=== PATIENT | male | born 1955 | race Caucasian/White ===

== ENCOUNTER → 2024-01-13 07:00 | Outpatient (REF) | payer OTHER, SELFPAY | LOC: RAD 07:00 | PROVIDERS: ATTENDING PHYSICIAN Family Medicine | DX: Z87.891 Personal history of nicotine dependence (principal) | CPT/HCPCS: 71271 ==

== ENCOUNTER 2024-03-21 20:18 | Inpatient (IN) | payer OTHER, SELFPAY ==
[2024-03-21] VITALS (10 sets, daily range): BP systolic 98–166; BP diastolic 58–114; BMI 30.2; BMI 29.8
--- NOTE | 2024-03-21 15:21 | ED.GENMED ---
History of Present Illness
General
Chief Complaint: Abdominal Pain
Time Seen by Provider: 03/21/24 15:07
History of Present Illness
History of Present Illness:
68-year-old male presents to the emergency department for evaluation of left lower quadrant abdominal pain radiating to the left flank that began at noon today. Feels comparable to a pain that he had 5 years ago that was diagnosed as a left renal
infarct. Denies any fevers or chills. No intra-abdominal surgeries in the past. No hematuria
Past History
Past History
ED Past Medical History: HTN, Hypercholesterolemia and Other (renal calc)
Social History
Tobacco: Former smoker
Alcohol: None
Drug: None
Personal:
Living: with family
Employment: Employed
Review of Systems
Review of Systems
Allergies reviewed?: Yes
All Other Systems: ROS reviewed and negative except as documented in HPI and ROS
Phy Exam
Physical Exam
Physical Exam:
GEN: Well appearing, NAD, WDWN
HEENT: Oral mucosa moist, no scleral icterus
Cardiac: Regular rate
Lung: No respiratory distress, no tachypnea
Abdomen: Soft, nontender, no CVA tenderness
MSK: No gross deformity or injuries
Skin: Good color, no pallor or jaundice, no rashes
Neuro: AO x3, moves all extremities freely
Psych: Calm, cooperative
Course
Orders/Labs/Results
Orders:
Orders
03/21/24 15:18
CT Abd/Pel (IV only)-DH only Urgent
Comment:
Reason For Exam: LLQ pain
03/21/24 15:50
ECG [Electrocardiogram (*1)] Urgent
Reason for Study: Chest Pain
EKG- Treatment ONCE
03/21/24 15:57
HYDROmorphone [Dilaudid] 0.5 mg .ROUTE .STK-MED ONE
03/21/24 15:58
HYDROmorphone [Dilaudid] 0.5 mg IV NOW STA
03/21/24 16:02
Complete Blood Count/With Diff Urgent
Comprehensive Metabolic Panel Urgent
Prothrombin Time Urgent
03/21/24 16:29
Ketorolac [Toradol] 15 mg IV NOW STA
03/21/24 16:54
HYDROmorphone [Dilaudid] 1 mg IV NOW STA
03/21/24 18:50
Urinalysis Reflex To Culture Urgent
Date Specimen was Collected: 03/21/24
Time Specimen was Collected: 18:34
Urine Microscopic Reflex Cult Urgent
03/21/24 19:05
HYDROmorphone [Dilaudid] 0.5 mg IV NOW STA
03/21/24 19:41
0.9% Sodium Chloride 1000 ml [Nss] 1,000 ml IV BOLUS
03/21/24 20:03
Tamsulosin [Flomax] 0.4 mg PO NOW STA
03/21/24 20:15
0.9% Sodium Chloride 1000 ml [Nss] 1,000 ml IV 150 mls/hr
03/22/24 08:00
Tamsulosin [Flomax] 0.4 mg PO DAILY
Abnormal Lab Results
03/21/24 03/21/24
16:02 18:50
Absolute Neuts (auto) 7.8 H 10^3/uL
(1.4-6.5)
Absolute Lymphs (auto) 1.1 L 10^3/uL
(1.2-3.4)
Neutrophils % 80.4 H %
(42.2-75.2)
Lymphocytes % 11.1 L %
(20.5-51.1)
BUN 23 H mg/dl
(9-20)
Glucose 111 H mg/dl
(70-99)
Ur Occult Blood Reflex 4+ A
(Negative)
Urine RBC 70-80 A /HPF
(0-2)
Urine Bacteria (Reflex) Few A
(Negative)
03/21/24 16:02
03/21/24 16:02
Vital Signs
Initial and Last Documented VS:
Initial Vital Signs
Temp Pulse Resp BP Pulse Ox
98.4 F 77 20 128/95 95
03/21/24 14:15 03/21/24 14:15 03/21/24 14:15 03/21/24 14:15 03/21/24 14:15
Last Documented Vital Signs
Temp Pulse Resp BP Pulse Ox
98.4 F 72 14 131/86 93
03/21/24 14:15 03/21/24 20:00 03/21/24 20:00 03/21/24 20:00 03/21/24 20:00
MDM/Problems Addressed
MDM/Problems Addressed:
Patient noted to have 3 mm proximal ureteral stone. He had multiple bouts of diaphoresis and severe pain requiring numerous doses of IV opioids and Toradol. Ultimately his pain was not well-controlled thus he is not suitable for discharge to home,
will admit to the hospital service for further pain control, urology made aware for consultation and potential intervention if warranted
*Critical Care Note
Total Time (30-74mins, 75-104mins- exclusive of procedures): Not Applicable
ED Attending Note
-
Portions of this chart may have been created with voice recognition software.� Occasional wrong word or��sound alike� substitutions may have occurred due to the inherent limitations of voice recognition software.
Discharge Plan
Departure
Patient Disposition: Admit
Date of Disposition: 03/21/24
Time of Disposition: 19:28
Admit to: Med/Surg
Presentation/result/management discussed w/ accepting MD/DO: Hospitalist
Patient with high blood pressure during this ER visit?: No
Discharge Problem:
Ureterolithiasis
Prescriptions:
No Action
meloxicam 15 MG tablet
15 mg PO DAILY
temazepam 15 MG capsule
15 mg PO HS
simvastatin 20 MG tablet
20 mg PO QPM
aspirin 81 MG tablet,chewable
162 mg PO DAILY
metoprolol succinate 50 mg tablet extended release 24 hr
50 mg PO QPM
Theragen Tablet
1 tab PO NOON
amlodipine 5 mg tablet
5 mg PO QPM
losartan 100 mg tablet
100 mg PO QPM
escitalopram oxalate 10 mg tablet
10 mg PO DAILY
Referrals:
Ronen York MD [Family Provider] -
Interventions
Interventions:
*Risk Screen - Suicide Last Done: 03/21/24 14:15
*General Assessment Last Done: 03/21/24 14:15
*Neglect/Abuse Screening Last Done: 03/21/24 14:15
ED- Fall Risk Assessment Last Done: 03/21/24 17:16
FL-Yximym-Noqgokmrac Assessment Last Done: 03/21/24 16:01
Discharge Date and Time
Print Language: SPANISH
[2024-03-21] MEDS: DILAUDID 0.5 MG IV (16:02)
[2024-03-21 16:11] LABS: % Basophils 0.5 % (0-2); % Eosinophils 1.2 % (0-6); % Immature Granulocytes 0.4 % (0-0.5); % Lymphocytes 11.1 % (20.5-51.1); % Monocytes 6.4 % (1.7-9.3); % Neutrophils 80.4 % (42.2-75.2); Absolute Basophils 0.1 10^3/uL (0-0.2); Absolute Eosinophils 0.1 10^3/uL (0-0.7); Absolute Lymphocytes 1.1 10^3/uL (1.2-3.4); Absolute Monocytes 0.6 10^3/uL (0.1-0.6); Absolute Neutrophils 7.8 10^3/uL (1.4-6.5); Hematocrit 43.2 % (39.0-52.0); Hemoglobin 15.1 g/dL (13.0-18.0); Mean Corpuscular Hgb 29.3 pg (27.0-31.0); Mean Corpuscular Volume 83.7 fL (80.0-94.0); Mean Platelet Volume 9.9 fL (7.4-10.4); Nucleated Red Blood Cells % 0 % (-); Platelet Count 289 10^3/uL (130-400); Red Blood Cell Count 5.16 10^6/uL (4.70-6.10); Red Cell Dist. Width 13.1 % (11.5-14.5); White Blood Cell Count 9.7 10^3/uL (4.8-10.8)
[2024-03-21 16:26] LABS: ALT (SGPT) 25 U/L (0-50); AST (SGOT) 29 U/L (17-59); Albumin 4.7 g/dl (3.5-5.0); Alkaline Phosphatase 106 U/L (38-126); Blood Urea Nitrogen 23 mg/dl (9-20); Calcium 9.9 mg/dl (8.4-10.2); Carbon Dioxide 24 mmol/L (22-30); Chloride 103 mmol/L (98-107); Estimated Creatinine Clearance 78 ml/min; Glucose 111 mg/dl (70-99); Potassium 4.6 mmol/L (3.5-5.1); Sodium 137 mmol/L (135-145); Total Bilirubin 0.4 mg/dl (0.2-1.3); Total Protein 7.1 g/dl (6.3-8.2); eGFR > 60.00
[2024-03-21 16:29] LABS: INR 0.99; PT 12.8 Sec (11.4-14.6)
[2024-03-21] MEDS: TORADOL 15 MG IV (16:35)
[2024-03-21] MEDS: DILAUDID 1 MG IV ×2 (16:58→21:32)
[2024-03-21 18:56] LABS: Urine Albumin Negative (Neg - Trace); Urine Bilirubin Negative (Negative); Urine Character Clear (Clear); Urine Color Yellow; Urine Glucose Negative (Negative); Urine Ketone Negative (Negative); Urine Leukocyte Negative (Negative); Urine Nitrite Negative (Negative); Urine Occult Blood 4+ (Negative); Urine Specific Gravity 1.015 (<1.030); Urine Urobilinogen Negative (Neg - 1+)
[2024-03-21 19:04] LABS: Urine Mucus Few
[2024-03-21 19:05] LABS: Urine Bacteria Few (Negative); Urine Red Blood Cell 70-80 /HPF (0-2); Urine White Cell 0-2 /HPF (0-5)
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
[2024-03-21] MEDS: NSS 1000 IV ×2 (19:43→21:31)
--- NOTE | 2024-03-21 20:00 | W.PN.UPDATE ---
Update Note
Progress Note Update
This is an addendum to the H&P written by KEYLA Mejia on 03/21/2024.
Patient seen and examined independently with [employer] [facility].
68-year-old male past medical history of hypertension, hyperlipidemia, nephrolithiasis, presenting with
CT abdomen pelvis shows 3 mm calculus in the proximal left ureter with minimal left hydroureteronephrosis. Urinalysis no evidence of infection. IV fluids, n.p.o. past midnight for potential stent placement if stone does not pass, tamulosin dose,
urology consulted.
[2024-03-21] MEDS: FLOMAX 0.4 MG PO (21:28)
[2024-03-21] MEDS: RESTORIL PO (23:16)
[2024-03-22] VITALS (8 sets, daily range): BP systolic 111–149; BP diastolic 74–96
[2024-03-22] MEDS: TORADOL 15 MG IV ×2 (02:00→09:01)
--- NOTE | 2024-03-22 03:25 | DOWNTIME ---
There was a [employer] Client Supervisor Forming Department Downtime on 03/22/2024 from 0100 to 03/22/2024 at 0255. Downtime documentation of patient's care, including medication administrations, has been reconciled in the electronic record per guidelines. Refer to the
patient's paper chart under the miscellaneous tab to see printed paper medication records and downtime forms.
[2024-03-22] MEDS: NSS 1000 IV ×3 (04:29→21:27)
[2024-03-22] MEDS: DILAUDID 0.5 MG IV (04:40)
[2024-03-22 06:25] LABS: Blood Urea Nitrogen 24 mg/dl (9-20); Calcium 8.9 mg/dl (8.4-10.2); Carbon Dioxide 24 mmol/L (22-30); Chloride 107 mmol/L (98-107); Estimated Creatinine Clearance 71 ml/min; Glucose 96 mg/dl (70-99); Potassium 4.2 mmol/L (3.5-5.1); Sodium 137 mmol/L (135-145); eGFR > 60.00
[2024-03-22 07:20] LABS: % Basophils 0.1 % (0-2); % Eosinophils 1.1 % (0-6); % Immature Granulocytes 0.3 % (0-0.5); % Lymphocytes 13.9 % (20.5-51.1); % Monocytes 7.9 % (1.7-9.3); % Neutrophils 76.7 % (42.2-75.2); Absolute Eosinophils 0.1 10^3/uL (0-0.7); Absolute Lymphocytes 1.1 10^3/uL (1.2-3.4); Absolute Monocytes 0.6 10^3/uL (0.1-0.6); Hematocrit 37.1 % (39.0-52.0); Hemoglobin 12.9 g/dL (13.0-18.0); Mean Corp Hgb Conc. 34.8 g/dL (33.0-37.0); Mean Corpuscular Hgb 29.6 pg (27.0-31.0); Mean Corpuscular Volume 85.1 fL (80.0-94.0); Mean Platelet Volume 10.3 fL (7.4-10.4); Nucleated Red Blood Cells % 0 % (-); Platelet Count 220 10^3/uL (130-400); Red Blood Cell Count 4.36 10^6/uL (4.70-6.10); Red Cell Dist. Width 13.2 % (11.5-14.5); White Blood Cell Count 7.9 10^3/uL (4.8-10.8)
[2024-03-22] MEDS: FLOMAX 0.4 MG PO (08:54)
[2024-03-22] MEDS: LEXAPRO 10 MG PO (08:54)
--- NOTE | 2024-03-22 08:56 | W.PN.URO.CBU ---
Today's Communication / Plan
-
to op room ice chips and sips until noon
Assessment / Plan
-
intractabl pain due to 3 mm stone for attemptat removal stenting
Diagnosis
-
Date of Service: March 22, 2024left proximal 3mm stone with intractable pain
-
Patient Diagnosis:
Post Op Day:
Subjective
-
still pain with no fver chills
Objective
-
Vital Signs
Temp Pulse Resp BP Pulse Ox
98.3 F 82 16 127/83 95
03/22/24 07:00 03/22/24 07:00 03/22/24 07:00 03/22/24 07:00 03/22/24 07:00
Intake and Output
03/21/24 03/22/24 03/23/24
06:59 06:59 06:59
Intake Total 1463 / 1463
Output Total 1050 / 1050
Balance 413 / 413
Intake:
Oral fluids 240 / 240
IV fluids (Total) 1223 / 1223
Output:
Urine, Voided 1050 / 1050
Laboratory Results
03/22/24 05:22
03/22/24 05:22
Review of Systems
-
Abdomen/GI: Nausea
: Flank Pain
Physical Exam
-
General - well developed, well nourished, no acute distress
Chest - clear bilaterally
Abdomen - soft, non-tender, positive bowel sounds, no CVAT, no incisional pain or distention
Genitalia - normal
Rectal - normal
Skin - warm & dry with no rash
Neuro - AOx3, no motor deficits
Extremities - no clubbing, no cyanosis, no edema
Incision - clean, dry
Dressing - clean, dry, intact
Care Review
Data Reviewed
Discussed with: Hospitalist and Nursing
CT Scan: Image Pers Reviewed
--- NOTE | 2024-03-22 15:52 | CM ---
Alert awake oriented patient who lives with his Jerica who lives in a 2 story home with 3 step to enter and 10 steps to bed and bathroom. He is independent in all activities of daily living.For surgery today.
[facility] hx /No SNF hx
Pharmacy [facility]
PCP DR York
PLAN Home no anticipated needs
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
[2024-03-22] MEDS: LIPITOR 10 MG PO (17:30)
[2024-03-22] MEDS: RESTORIL 15 MG PO (21:27)
[2024-03-23] MEDS: NSS 1000 IV (04:29)
[2024-03-23 06:09] LABS: % Basophils 0.1 % (0-2); % Immature Granulocytes 0.6 % (0-0.5); % Lymphocytes 3.7 % (20.5-51.1); % Monocytes 2.9 % (1.7-9.3); % Neutrophils 92.7 % (42.2-75.2); Absolute Immature Granulocytes 0.1 10^3/uL (0-0.05); Absolute Lymphocytes 0.4 10^3/uL (1.2-3.4); Absolute Monocytes 0.3 10^3/uL (0.1-0.6); Absolute Neutrophils 9.1 10^3/uL (1.4-6.5); Hematocrit 38.9 % (39.0-52.0); Hemoglobin 13.4 g/dL (13.0-18.0); Mean Corp Hgb Conc. 34.4 g/dL (33.0-37.0); Mean Corpuscular Hgb 30.3 pg (27.0-31.0); Nucleated Red Blood Cells % 0 % (-); Platelet Count 207 10^3/uL (130-400); Red Blood Cell Count 4.42 10^6/uL (4.70-6.10); Red Cell Dist. Width 12.9 % (11.5-14.5); White Blood Cell Count 9.9 10^3/uL (4.8-10.8)
[2024-03-23 06:32] LABS: Blood Urea Nitrogen 18 mg/dl (9-20); Calcium 8.9 mg/dl (8.4-10.2); Carbon Dioxide 19 mmol/L (22-30); Chloride 110 mmol/L (98-107); Estimated Creatinine Clearance 107 ml/min; Glucose 125 mg/dl (70-99); Potassium 4.6 mmol/L (3.5-5.1); Sodium 139 mmol/L (135-145); eGFR > 60.00
[2024-03-23 07:00] VITALS: BP 142/89
[2024-03-23] MEDS: FLOMAX 0.4 MG PO (08:13)
[2024-03-23] MEDS: LEXAPRO 10 MG PO (08:13)
[2024-03-23 14:30] VITALS: BP 137/88
--- NOTE | 2024-03-23 14:47 | W.DS.TRANS ---
DC Summary - Band Straightener
-
Discharge Instructions:
Discharge Diagnosis/Procedures left ureteral stone, s/p ureteroscopy, stone
removal, stent insertion
Diet No restrictions
Activity No restrictions
Driving Restrictions No driving for 24 hours
Bathing Restrictions None
Instructions:
Stand-Alone Forms:
Changes to Home Medications: Yes
Discharge Medications:
DC Medications w/original date entered in [employer] [facility]
aspirin 81 mg chewable tablet 162 mg PO DAILY Blood Clot Prevention/Tx 06/08/19
meloxicam 15 mg tablet 15 mg PO DAILY pain 06/08/19
simvastatin 20 mg tablet 20 mg PO QPM High Cholesterol 06/08/19
temazepam 15 mg capsule 15 mg PO HS sleep 06/08/19
amlodipine 5 mg tablet 5 mg PO QPM Blood Pressure 03/21/24
escitalopram oxalate 10 mg tablet 10 mg PO DAILY depression/anxiety 03/21/24
losartan 100 mg tablet 100 mg PO QPM Blood Pressure 03/21/24
metoprolol succinate 50 mg tablet,extended release 24 hr 50 mg PO QPM Blood Pressure 03/21/24
therapeutic multivitamin 1 tab PO NOON Supplement 03/21/24
methenam 118 mg-m.blue 10 mg-s.phos 40.8 mg-p.salic 36 mg-hyos capsule (Uribel) 1 tab PO QID bladder irritation #20 caps 03/22/24
Home Medication Changes
New med - Uribel
Pending Results: No
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
--- NOTE | 2024-03-23 14:53 | CM ---
MD entered order for discharge.
Imm reviewed signed on chart.
Pt said he was ready for discharge.
His Jerica Pizano will drive him home.
PLAN Home no needs
--- NOTE | 2024-03-23 15:33 | PN.CDI ---
CDI
- -
CDI:
Physician Documentation Request
Admit Date: 03/21/24 20:18
Dear Doctor El,
Please review the following and provide your response in the progress notes.
Clinical Indicators:
Pt admitted with Left nonobstructive calculus with mild hydronephrosis now s/p left ureter stent
Pt did have some hypotension during stay
Renal functions are as below/Pt did get IVFs
Laboratory Tests
03/21/24 03/22/24 03/23/24
16:02 05:22 05:24
Creatinine 1.1 1.2 0.8
Clarify which of the following accurately represents the patient's renal status:
GIL
Insignificant lab value only
Other
Criteria for GIL*
1 Increase in serum creatinine by > or = to 0.3 mg/dL (> or = to 26.5 micromol/L) within 48 hours, OR
2 Increase in serum creatinine to > or = to 1.5 times baseline, which is known or presumed to have occurred within 7 days, OR
3 Urine volume < 0.5 nL/kg/hour for six hours
Use of terms such as suspected, likely, concern for, or probable (associated with a specific diagnosis that is being evaluated, monitored, or treated as if it exists) are acceptable and can be coded in the inpatient setting, when documented at the
time of discharge.
Thank you,
Mayte Zhang RN
CDI Specialist
[place] [facility]
Please use your independent medical judgment in providing your response.
*Source: Kidney Disease: Improving Global Outcomes (KDIGO) 2012
[2024-03-23 19:49] LABS: Hepatitis C Antibody Negative (Negative)
[2024-03-26 17:00] LABS: Stone Analysis Mass 9 mg
== END 2024-03-23 15:00 | disposition home or self-care (01) | DRG 661 ==
LOC: 3 WEST ACU 20:18
PROVIDERS: Clinical Nurse Specialist Family Health; Physician Assistant; Specialist; ADMITTING PHYSICIAN Hospitalist; ATTENDING PHYSICIAN Internal Medicine; CONSULT PHYSICIAN Specialist; EMERGENCY PHYSICIAN Emergency Medicine; FAMILY PHYSICIAN Family Medicine
PROC: 0T778DZ Dilation of Left Ureter with Intraluminal Device, Via Natural or Artificial Opening Endoscopic (ICD-10-PCS; 2024-03-22)
PROC: 0TC78ZZ Extirpation of Matter from Left Ureter, Via Natural or Artificial Opening Endoscopic (ICD-10-PCS; 2024-03-22)
DX: N13.2 Hydronephrosis with renal and ureteral calculous obstruction (principal); I10 Essential (primary) hypertension; E78.00 Pure hypercholesterolemia, unspecified; G47.00 Insomnia, unspecified; G89.29 Other chronic pain; I95.2 Hypotension due to drugs; F41.9 Anxiety disorder, unspecified; T40.605A Adverse effect of unspecified narcotics, initial encounter; M54.9 Dorsalgia, unspecified; Z87.891 Personal history of nicotine dependence; Z88.0 Allergy status to penicillin; Z88.2 Allergy status to sulfonamides; Z79.899 Other long term (current) drug therapy; Z87.442 Personal history of urinary calculi; Z79.82 Long term (current) use of aspirin
CPT/HCPCS: 74018; 74177; 76000; 80048; 80053; 81003; 81015; 82365; 85025; 85610; 86803; 93005; 96374; 96375; 96376; 97161; 99285; A4300; C1894; C2617; Q9967